=== PATIENT | female | born 1970 | race Caucasian/White ===

== ENCOUNTER 2017-02-21 12:26 | Outpatient (CLI) | payer MEDICAID ==
[~2017-02-21 12:26] MED LIST: CEPH500C5 PO; CIP500T PO; HYDR-569 PO; IBUP-1985 PO; ONDA4TAB59 PO
[2017-02-21 12:31] VITALS: BP 137/93
[2017-02-21 12:41] VITALS: BP 137/93
== END 2017-02-21 13:15 | disposition home or self-care (01) ==
LOC: ORTHO 12:26
PROVIDERS: ATTEND Nurse Practitioner Family
DX: S63.259D Unspecified dislocation of unspecified finger, subsequent encounter (principal); W23.1XXD Caught, crushed, jammed, or pinched between stationary objects, subsequent encounter; Y92.018 Other place in single-family (private) house as the place of occurrence of the external cause
CPT/HCPCS: 99215

== ENCOUNTER 2017-04-23 13:37 | Outpatient (CLI) | payer MEDICAID ==
[~2017-04-23] VITALS: Ht 160 cm; Wt 59.0 kg
[2017-04-23 13:36] VITALS: BP 164/106
[2017-04-23 14:01] VITALS: BP 158/102
[2017-04-23 17:03] VITALS: BP 164/98
== END 2017-04-23 14:30 | disposition home or self-care (01) ==
LOC: ORTHO 13:37
PROVIDERS: ATTEND Nurse Practitioner Family
DX: S63.259D Unspecified dislocation of unspecified finger, subsequent encounter (principal); F17.210 Nicotine dependence, cigarettes, uncomplicated; F41.9 Anxiety disorder, unspecified; G89.18 Other acute postprocedural pain; G89.29 Other chronic pain; Z86.73 Personal history of transient ischemic attack (TIA), and cerebral infarction without residual deficits; Z90.49 Acquired absence of other specified parts of digestive tract; Z79.899 Other long term (current) drug therapy; X58.XXXD Exposure to other specified factors, subsequent encounter
CPT/HCPCS: 99213

== ENCOUNTER 2017-05-14 06:46 | Emergency (ER) | payer MEDICAID ==
[~2017-05-14] VITALS: Ht 160 cm; Wt 57.7 kg
[2017-05-14] MEDS ORDERED: proparacaine 0.5% ophthalmic drops 15ml RIGHTEYE ONE (07:40)
[2017-05-14] MEDS ORDERED: benoxinate/fluorescein ophth drops 5ml bottle LEFTEYE ONE (07:45)
[2017-05-14] MEDS ORDERED: tropicamide 0.5% ophthalmic drops 15ml RIGHTEYE ONE (08:40)
[2017-05-14] MEDS ORDERED: SUL50S RIGHTEYE (08:56)
[2017-05-14 09:48] VITALS: BP 172/104
== END 2017-05-14 09:53 | disposition home or self-care (01) ==
LOC: ER 06:47
DX: H20.21 Lens-induced iridocyclitis, right eye (principal); F17.200 Nicotine dependence, unspecified, uncomplicated; F12.90 Cannabis use, unspecified, uncomplicated; G89.29 Other chronic pain; Z90.49 Acquired absence of other specified parts of digestive tract; Z86.73 Personal history of transient ischemic attack (TIA), and cerebral infarction without residual deficits; Z79.899 Other long term (current) drug therapy
CPT/HCPCS: 99283; A6410